=== PATIENT | male | born 1975 | race Caucasian/White ===

== ENCOUNTER 2017-08-15 07:59 | Outpatient (CLI) | payer OTHER ==
[~2017-08-15] VITALS: Ht 185.4 cm; Wt 93.2 kg
[~2017-08-15 07:59] MED LIST: CELEBREX 200MG200 MG PO; COZAAR100 MG PO; NEURONTIN300 MG/CAP PO; PROZAC 20MG20 MG PO; ZOCOR 10MG10 MG PO
[2017-08-15 08:27] VITALS: BP 121/82; PULSE 64
[2017-08-15 09:20] VITALS: BP 119/85; PULSE 52; PULSE 53; TEMP 98.1
[2017-08-15 09:35] VITALS: BP 109/78; PULSE 53
[2017-08-15 09:50] VITALS: BP 110/77; PULSE 55
[2017-08-15 09:51] LABS: GLUCOSE,CSF 55 mg/dL (40-70); TOTAL PROTEIN,CSF 33 mg/dL (15-45)
[2017-08-15 10:05] VITALS: BP 116/76; PULSE 53
[2017-08-15 10:20] VITALS: BP 118/80; PULSE 54
[2017-08-15 10:41] LABS: CSF APPEARANCE CLEAR; CSF COLOR COLORLESS; CSF RBC 11 /mm3 (0-0)
[2017-08-15 11:06] LABS: CSF MONONUCLEAR 99 % (70-100); CSF POLYMORPHONUCLEAR 1 % (0-6)
== END 2017-08-15 11:25 | disposition home or self-care (01) ==
LOC: COL.RAD 07:59
PROVIDERS: Psychiatry & Neurology Neurology
DX: G37.9 Demyelinating disease of central nervous system, unspecified (principal)

== ENCOUNTER 2017-10-01 08:35 | Outpatient (CLI) | payer OTHER ==
[~2017-10-01] VITALS: Ht 185.4 cm; Wt 95.1 kg
[2017-10-01] VITALS (7 sets, daily range): BP systolic 115–135; BP diastolic 78–88; PULSE 53–61; TEMP 99.1
[2017-10-01 10:38] LABS: GLUCOSE,CSF 55 mg/dL (40-70); TOTAL PROTEIN,CSF 39 mg/dL (15-45)
[2017-10-01 10:46] LABS: CSF APPEARANCE CLEAR; CSF COLOR COLORLESS
[2017-10-01 10:47] LABS: CSF MONONUCLEAR 100 % (70-100); CSF POLYMORPHONUCLEAR 0 % (0-6); CSF RBC 43 /mm3 (0-0)
[2017-10-03 14:46] LABS: IGG/ALBUMIN SERUM 0.25 (<=0.40)
[2017-10-03 14:57] LABS: ALBUMIN CSF 16.2 mg/dL (<=27.0); CSF IGG/ALBUMIN 0.31 (<=0.21); CSF SYNTHESIS RATE 14.78 mg/24 h (<=12); CSF,IGG 5.1 mg/dL (<=8.1); CSF-IGG INDEX 1.24 (<=0.85)
== END 2017-10-01 11:46 | disposition home or self-care (01) ==
LOC: COL.RAD 08:35
PROVIDERS: Psychiatry & Neurology Neurology
DX: G93.9 Disorder of brain, unspecified (principal)